=== PATIENT | male | born 1965 | race Caucasian/White ===

== ENCOUNTER 2021-10-31 18:50 | Emergency (ER) | payer OTHER ==
[2021-10-31 18:57] VITALS: BP 120/85; PULSE 87; TEMP 98; BMI 25.8
[2021-10-31] MEDS ORDERED: FLUORESCEIN NA 1 EA STRIP OU ONE (19:24)
[2021-10-31] MEDS ORDERED: TETRACAINE 0.5% HCL 0.6ML DROPPER.BOTTLE OU ONE (19:24)
== END 2021-10-31 21:08 | disposition home or self-care (01) ==
LOC: JERFT 18:50
DX: T59.91XA Toxic effect of unspecified gases, fumes and vapors, accidental (unintentional), initial encounter (principal); Z77.098 Contact with and (suspected) exposure to other hazardous, chiefly nonmedicinal, chemicals
CPT/HCPCS: 99283-25

== ENCOUNTER 2022-06-27 06:00 | Emergency (ER) | payer OTHER ==
[2022-06-27 06:12] VITALS: BMI 25.8
[2022-06-27] MEDS ORDERED: KETOROLAC TROMETHAMINE 30 MG/1 ML VIAL IM ONE (07:53)
[2022-06-27] MEDS ORDERED: KETOROLAC TROMETHAMINE 30 MG/1 ML VIAL ONE (07:54)
[2022-06-27] MEDS ORDERED: AMOX TR/POTASSIUM CLAVULANATE 400 MG/5 ML BOTTLE PO ONE (08:39)
[2022-06-27 13:49] VITALS: RESP 16; TEMP 98.4
[2022-06-27 18:32] VITALS: BP 143/84; PULSE 96
== END 2022-06-27 18:33 | disposition short-term general hospital (02) ==
LOC: JER 06:00
PROC: 3E0233Z Introduction of Anti-inflammatory into Muscle, Percutaneous Approach (ICD-10-PCS; principal; 2022-06-27)
DX: S03.2XXA Dislocation of tooth, initial encounter (principal); K04.7 Periapical abscess without sinus; W01.0XXA Fall on same level from slipping, tripping and stumbling without subsequent striking against object, initial encounter
CPT/HCPCS: 0241U-QW; 70486-TC; 99285-25